=== PATIENT | female | born 1985 | race Caucasian/White ===

== ENCOUNTER 2022-07-12 09:27 | Outpatient (CLI) | payer BC, MEDICAID, SELFPAY ==
--- NOTE | ~2022-07-12 | US_ITS ---
US OB <=14 wk fetus w TV DATE: 07/12/2022 10:52 INDICATION: Abdominal cramping in . TECHNIQUE: Real-time and color flow imaging via transabdominal and transvaginal approaches COMPARISON: None FINDINGS: The uterus measures 12.4 centers height, 3.5 cm anteroposterior dimension. There is a rounded sonolucency with surrounding hyperechogenicity within the endometrial cavity the u terine fundus. Gestational sac size of 0.41 cm would be consistent with estimated gestational age of 5 weeks 1 day. The left ovary measures approximately 3.4 x 2.3 x 4.2 cm. There are simple and complicated left ovari an cysts, including approximately 1.3 x 1.7 cm complicated left ovarian cyst. There is a small amount of free fluid adjacent to the right ovary and in the pelvic cul-de-sac. The right ovary measures 2.5 x 1.6 x 1.8 cm. IMPRESSION: Suspected early intrauterine gestation of approximately 5 weeks 1 day estimated age Complicated left ovarian cyst measuring up to 1.3 x 1.7 cm Mild free fluid in the right adnexal area and posterior cul-de-sac Short-term pelvic ultrasound follow-up within one week is recommended Reviewed, dictated and finalized at [facility]. Reviewed, dictated and finalized at [facility]. IMPRESSION: Suspected early intrauterine gestation of approximately 5 weeks 1 d ay estimated age Complicated left ovarian cyst measuring up to 1.3 x 1.7 cm Mild free fluid in the right adnexal area and posterior cul-de-sac Short-term pelvic ultrasound follow-up within one week is recommended
== END 2022-07-12 09:28 | disposition home or self-care (01) ==
PROVIDERS: Visit Provider Obstetrics & Gynecology Gynecology
DX: O34.81 Maternal care for other abnormalities of pelvic organs, first trimester (principal); N83.202 Unspecified ovarian cyst, left side; Z3A.01 Less than 8 weeks gestation of pregnancy
CPT/HCPCS: 76801; 76817

== ENCOUNTER → 2022-07-20 09:58 | Outpatient (CLI) | payer SELFPAY ==
--- NOTE | ~2022-07-20 | US_ITS ---
EXAMINATION: US OB transvaginal INDICATION: Viability TECHNIQUE: Sonography of the pelvis was performed by transabdominal and transvaginal techniques. COMPARISON: 07/12/2022. RESULT: Uterus: Orientation: Anteverted. 10.7 x 5.1 x 7.0 cm. Myometrium: homogeneous echogenicity. Intraute rine gestational sac: Single present. Mean Sac Diameter: 1.4 cm, corresponding gestational age 5 we ek 5 days. Yolk sac: 0.5 cm. Embryo: Possible identification of a pole, crown rump length: 0 .4 cm, corresponding gestational age 6 weeks, 0 days. Gestational heart rate: Not detected. Subgestat ional hematoma: Absent Right ovary: 2.5 x 2.3 x 2.3 cm. Normal sonographic appearance with physiologic follicles. . No ad nexal mass. Left ovary: 4.3 x 2.7 x 3.4 cm. Normal sonographic appearance with physiologic follicles. . No adn exal mass. Pelvis free fluid: None. IMPRESSION: Intrauterine with possible identification of a pole. No heart tones detected, 9 days following a scan that demonstrated a gestational sac with no yolk sac. These findings are suspi cious for but not diagnostic of failure. Recommend continued close clinical and sonographic follow-up. Estimated Gestational Age: 6 weeks, 0 days by crown rump length. WHIT by ultrasound 03/15/2023. Reviewed, dictated and finalized at [facility]. IMPRESSION: Intrauterine with possible identification of a pole. No h eart tones detected, 9 days following a scan that demonstrated a gestational sa c with no yolk sac. These findings are suspicious for but not diagnostic of pre gnancy failure. Recommend continued close clinical and sonographic follow-up. Estimated Gestational Age: 6 weeks, 0 days by crown rump length. WHIT by ultras ound 03/15/2023.
== END ==
PROVIDERS: PCP Obstetrics & Gynecology Gynecology; Visit Provider Obstetrics & Gynecology Gynecology
DX: O36.80X0 Pregnancy with inconclusive fetal viability, not applicable or unspecified (principal); Z3A.01 Less than 8 weeks gestation of pregnancy
CPT/HCPCS: 76817